=== PATIENT | female | born 1995 ===

== ENCOUNTER 2017-04-02 18:38 | Emergency (ER) | payer OTHER ==
[2017-04-02 18:51] VITALS: RESP 16
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
[2017-04-02 20:15] VITALS: BP 134/78; PULSE 81; TEMP 98.6; O2SAT 96
== END 2017-04-02 19:55 | disposition home or self-care (01) ==
DX: S42.022A Displaced fracture of shaft of left clavicle, initial encounter for closed fracture (principal); S09.90XA Unspecified injury of head, initial encounter; V13.9XXA Unspecified pedal cyclist injured in collision with car, pick-up truck or van in traffic accident, initial encounter; Y92.410 Unspecified street and highway as the place of occurrence of the external cause; Y99.8 Other external cause status; Y93.55 Activity, bike riding